=== PATIENT | female | born 1970 | race African-American/Black ===

== ENCOUNTER 2016-07-08 05:55 | Day surgery (SDC) | payer BC ==
[~2016-07-08] VITALS: Ht 175.3 cm; Wt 105.5 kg
[2016-07-08] VITALS (10 sets, daily range): BP systolic 106–155; BP diastolic 41–73
[~2016-07-08 05:55] MED LIST: CRESTOR10 MG PO; ENALAPRIL5 MG PO; IMITREX25 MG PO; MULTI VIT PO; VITAMIN D H1000 UNIT PO
--- NOTE | 2016-07-08 11:25 | NUR ---
PT ARRIVED TO FLOOR AT THIS TIME VIA LUDY ACCOMPANIED BY MICHELLE RN; PT TRANSFERRED SELF TO BED; LLANES IN PLACE DRAINING BLUE DYE COLORED URINE PER GRAVITY; INCISIONS X3 IN PLACE CDI; PT ORIENTED TO ROOM AND CALL LIGHT SYSTEM; PT C/O CRAMPING ABD PAIN RATING 3 OUT OF 10; SCD'S IN PLACE; ASSESSMENT COMPLETED AT THIS TIME; ICE CHIPS GIVEN PER DR WEST ORDERS; CALL LIGHT WITHIN REACH; WILL CONTINUE TO MONITOR
--- NOTE | 2016-07-08 11:50 | NUR ---
PT C/O NAUSEA AT THIS TIME; EMESIS BAG AND COOL WASH RAG GIVEN; PT MEDICATED WITH ZOFRAN PER PRN ORDER; IVF INFUSING AT PRESCRIBED RATE; CALL LIGHT WITHIN REACH; WILL CONTINUE TO MONITOR
[2016-07-08 16:32] LABS: HEMATOCRIT 39.5 % (37.0-47.0); HEMOGLOBIN 12.4 g/dl (12.0-16.0)
--- NOTE | 2016-07-08 16:53 | NUR ---
PT AMB IN HALLS AT THIS TIME WITH STEADY GAIT; FRANCISCO SQUIRES AT STANDBY FOR ASSISTANCE; WILL CONTINUE TO MONITOR
--- NOTE | 2016-07-08 19:20 | NUR ---
PT IN BED AWAKE. REQUESTING LLANES CATHETER TO BE REMOVED PER MD SANON. LLANES D/C WITH CATH TIP INTACT. PT AWARE TO KEEP HYDRATED AND AWARE OF THE NEED TO VOID ON HER OWN, MEASUREMENT DEVICE IN COMMODE TO CATCH URINE. PT TEACHINGS DONE ON CATHETER REMOVAL AND VOIDING PROCESS AFTER REMOVAL WITH PT VERBALIZING UNDERSTANDING. ASSESSMENT COMPLETE. POC EXPLAINED. DENIES NEEDS. NO S/S OF DISTRESS. CALL LIGHT IN REACH. WILL CONTINUE TO MONITOR.
--- NOTE | 2016-07-08 20:35 | NUR ---
PT ASSISTED UP TO THE BATHROOM TO ATTEMPT TO VOID, NO SUCCESS. FRESH ICE WATER GIVEN. DENIES FURTHER NEEDS. CALL LIGHT IN REACH. WILL CONTINUE TO MONITOR.
--- NOTE | 2016-07-08 22:07 | NUR ---
PT UP TO BSC AND VOIDED 450ML OF VERY LT PINK/YELLOW CLEAR URINE. DENIES NEEDS. NO S/S OF DISTRESS. CALL LIGHT IN REACH.
--- NOTE | 2016-07-08 22:42 | NUR ---
PT MEDICATED WITH LORTAB PER ORDERS FOR C/O ABD PAIN. DENIES FURTHER NEEDS. CALL LIGHT IN REACH.
--- NOTE | 2016-07-08 23:30 | NUR ---
PT DENIES RELIEF FROM LORTAB AND REPORTS INCREASE IN PAIN, PT NOW MEDICATED WITH DEMEROL, NO CHANGES IN ABD DRSG. VSS. DENIES FURTHER NEEDS. CALL LIGHT IN REACH
--- NOTE | 2016-07-09 01:00 | NUR ---
PT IN BED AWAKE. REPORTS MINIMAL PAIN. DENIES NEEDS. CALL LIGHT IN REACH
--- NOTE | 2016-07-09 03:07 | NUR ---
PT MEDICATED WITH LORTAB PER ORDERS FOR C/O ABD PAIN. DENIES FURTHER NEEDS.CALL LIGHT IN REACH
[2016-07-09 04:55] VITALS: BP 99/61
--- NOTE | 2016-07-09 05:39 | NUR ---
PT IN BED AWAKE. DENIES NEEDS. NO S/S OF DISTRESS. CALL LIGHT IN REACH.
--- NOTE | 2016-07-09 07:00 | NUR ---
SHIFT CHANGE REPORT, PT AWAKE ALERT AND ORIENTED, AMBULATING TO BR, NO C/O DISCOMFORT, CALL CONROY IN REACH.
[2016-07-09] MEDS ORDERED: DEMEROL50 MG PO (07:34)
[2016-07-09 08:31] VITALS: BP 108/64
--- NOTE | 2016-07-09 09:38 | NUR ---
Discharge instructions given. Patient verbalizes understanding of same. Discharged in fair condition via Wheelchair to Home with family. All belongings sent with pt.
== END 2016-07-09 09:40 | disposition home or self-care (01) | DRG 743 ==
LOC: ENPENDDIS → ORM 05:55 → MS2 10:18 → ORM 07-09 09:40
PROVIDERS: ATTEND Obstetrics & Gynecology
PROC: 0UT9FZZ Resection of Uterus, Via Natural or Artificial Opening With Percutaneous Endoscopic Assistance (ICD-10-PCS; principal; 2016-07-08)
PROC: 0UT2FZZ Resection of Bilateral Ovaries, Via Natural or Artificial Opening With Percutaneous Endoscopic Assistance (ICD-10-PCS; 2016-07-08)
PROC: 0UT7FZZ Resection of Bilateral Fallopian Tubes, Via Natural or Artificial Opening With Percutaneous Endoscopic Assistance (ICD-10-PCS; 2016-07-08)
DX: N92.1 Excessive and frequent menstruation with irregular cycle (principal); I10 Essential (primary) hypertension; D25.9 Leiomyoma of uterus, unspecified; N83.11 Corpus luteum cyst of right ovary; K21.9 Gastro-esophageal reflux disease without esophagitis; Z90.13 Acquired absence of bilateral breasts and nipples; Z85.3 Personal history of malignant neoplasm of breast
CPT/HCPCS: J2710; Q9967

== ENCOUNTER 2021-06-14 19:10 | Emergency (ER) | payer BC ==
[~2021-06-14] VITALS: Ht 175.3 cm; Wt 104.0 kg
[~2021-06-14 19:10] MED LIST changes: +DEMEROL50 MG PO
[2021-06-14] MEDS ORDERED: BENADRYL ALLERG25 MG PO (21:30)
[2021-06-14] MEDS ORDERED: PEPCID20 MG PO (21:30)
[2021-06-14] MEDS ORDERED: MEDDOSEPAK PO (21:30)
[2021-06-14 21:39] VITALS: BP 112/58
== END 2021-06-14 21:44 | disposition home or self-care (01) | DRG 923 ==
LOC: ED 19:10
DX: T78.1XXA Other adverse food reactions, not elsewhere classified, initial encounter (principal); L27.2 Dermatitis due to ingested food; X58.XXXA Exposure to other specified factors, initial encounter

== ENCOUNTER 2022-04-26 19:48 | Emergency (ER) | payer BC ==
[~2022-04-26] VITALS: Ht 175.3 cm; Wt 110.2 kg
[~2022-04-26 19:48] MED LIST changes: +BENADRYL ALLERG25 MG PO; +MEDDOSEPAK PO; +PEPCID20 MG PO
[2022-04-26] MEDS ORDERED: ULTRAM50 MG PO (22:34)
[2022-04-26 22:39] VITALS: BP 122/78
== END 2022-04-26 22:49 | disposition home or self-care (01) | DRG 563 ==
LOC: ED 19:48
DX: S83.92XA Sprain of unspecified site of left knee, initial encounter (principal); X50.9XXA Other and unspecified overexertion or strenuous movements or postures, initial encounter

== ENCOUNTER 2022-08-18 08:10 | Emergency (ER) | payer BC ==
[~2022-08-18] VITALS: Ht 175.3 cm; Wt 105.0 kg
[~2022-08-18 08:10] MED LIST changes: +ULTRAM50 MG PO
[2022-08-18] MEDS ORDERED: CLINDAMYCIN300 M1 PO (08:23)
[2022-08-18 08:53] VITALS: BP 117/66
== END 2022-08-18 09:10 | disposition home or self-care (01) | DRG 159 ==
LOC: ED 08:10
DX: K08.89 Other specified disorders of teeth and supporting structures (principal)